=== PATIENT | male | born 1970 | race Caucasian/White ===

== ENCOUNTER → 2021-12-03 | Outpatient (CLI) | payer BC, SELFPAY ==
--- NOTE | 2021-12-03 17:49 | MRI_ITS ---
STUDY: MRI LUMBAR SPINE WITHOUT CONTRAST REASON FOR EXAM: Male, 51 years old. Herniated disc L3-4 left side TECHNIQUE: Standardized fat and water weighted pulse sequences were obtained in the sagittal and axial planes. COMPARISON: None FINDINGS: The purposes of this report the lowest completely lumbarized vertebral body is best seen at L5 and was completely formed and spaces desiccated L5-S1. Utilizing this numbering system there is partial embolization of the S1 segment. T12-L1: Normal endplates. Normal disc height, hydration and morphology. Normal bilateral facet joints. Normal central canal and bilateral lateral recesses. Normal bilateral intervertebral neural foramina. Normal lumbar lordosis. There is no substantial scoliosis. Normal conus medullaris that terminates at the L1-2: Mild disc desiccation. L2-3: Mild disc desiccation, mild bulging, mild bilateral facet arthropathy. L3-4: Mild disc desiccation, mild disc bulging, mild bilateral facet arthropathy, mild bilateral neural foraminal encroachment. L4-5: Moderate disc desiccation, moderate central disc herniation, moderate bilateral facet arthropathy and ligamentous hypertrophy, moderate central stenosis AP diameter thecal sac 0.6 cm, mild bilateral neural foraminal encroachment. L5-S1: Moderate disc desiccation and loss of disc space height, moderate central disc herniation, moderate bilateral facet arthropathy and ligamentous hypertrophy, moderate central stenosis with AP diameter thecal sac 0.55 cm due to disc herniation, posterior element hypertrophic change and spinal lipomatosis acting in concert. Moderate bilateral neural foraminal encroachment. Normal visualized sacral ala. Normal visualized paraspinous soft tissue structures. MRI/Spine Lumbar (Routine) IMPRESSION: Moderate central disc herniation L5-S1. Moderate central disc herniation Mild disc bulging at L2-L4. Multilevel degenerative disc disease, central stenosis, facet arthropathy and neural foraminal encroachment as above. Electronically Signed: Adria Parker MD, BRADY at 8:50 EDT ,
== END | disposition home or self-care (01) ==
LOC: MRI 17:48
PROVIDERS: PCP Nurse Practitioner Family; Referring Provider Orthopaedic Surgery; Visit Provider Orthopaedic Surgery
DX: M51.26 Other intervertebral disc displacement, lumbar region (principal)
CPT/HCPCS: 72148

== ENCOUNTER → 2021-12-27 | Outpatient (CLI) | payer BC, SELFPAY ==
--- NOTE | 2021-12-27 08:51 | EKG12_ITS ---
Test Reason : PRE OP Blood Pressure : / mmHG Vent. Rate : 080 BPM Atrial Rate : 080 BPM P-R Int : 192 ms QRS Dur : 082 ms QT Int : 354 ms P-R-T Axes : 064 079 050 degrees QTc Int : 408 ms Normal sinus rhythm Normal ECG Confirmed by BERNABE SUMMERS, RICCARDO ([id number]), editor city FORREST DOE ([id number]) on 12/30/2021 1:22:56 PM Referred By: Cristóbal Silva Confirmed By:RICCARDO KIDD MD
[2021-12-27 09:37] LABS: Absolute Lymphocyte Count 2.14 X10^3/uL (0.83-4.51); Absolute Neutrophil Count 4.2 X10^3/uL (2.0-7.7); Basophil# 0.05 X10^3/uL; Basophil% 0.7 % (0-1); Eosinophil# 0.18 X10^3/uL; Eosinophils% 2.5 % (0-5); Lymphocyte # 2.14 X10^3/ul (0.83-4.51); Mean Corp Hgb Conc 34.1 g/dL (32-36); Mean Corpuscular Hgb 28.7 pg (27.0-32.0); Mean Corpuscular Volume 84.3 fL (80-94); Mean Platelet Vol. 9.2 fl (6.2-12.0); Monocyte# 0.57 X10^3/uL; NRBC Flagged by Analyzer 0 % (0-5); Neutrophil # 4.18 X10^3/uL (2.7-7.7); Neutrophil % 58.5 % (47-70); Platelet Count 282 K/mm3 (150-450); RBC Distribution Width CV 12.1 % (11.6-14.6); RBC Distribution Width SD 36.7 fl (35.1-43.9); Red Blood Count 5.22 M/mm3 (4.6-6.2); White Blood Count 7.1 K/mm3 (4.4-11.0)
[2021-12-27 10:24] LABS: Hemoglobin A1c 11.1 % (3.8-5.6)
[2021-12-27 10:25] LABS: Anion Gap 7 (5-15); BUN 18 mg/dL (7-18); BUN/Creat Ratio 18.3 RATIO (10-20); Calcium,Total 9.3 mg/dL (8.5-10.1); Chloride 101 mmol/L (98-107); Creatinine, Serum 0.98 mg/dL (0.70-1.30); EST Glomerular Filtration Rate 84 mL/min (>60); Est Glom Filt Rate - Afr Amer 102 mL/min (>60); Glucose 308 mg/dL (74-106); Potassium 4.2 mmol/L (3.5-5.1); Sodium Level 136 mmol/L (136-145)
[2021-12-27 10:57] LABS: HIV - WCH Non-Reactive (Nonreactive); Hepatitis B Surface Antibody Non-Reactive; Hepatitis C Antibody Non-Reactive (Nonreactive)
[2021-12-28 11:56] LABS: Hepatitis A AB, Total Negative (Negative)
== END | disposition home or self-care (01) ==
LOC: PAT 01-22 13:28
PROVIDERS: Anesthesiology; PCP Nurse Practitioner Family; Referring Provider Orthopaedic Surgery; Visit Provider Orthopaedic Surgery
DX: Z01.818 Encounter for other preprocedural examination (principal)
CPT/HCPCS: 36415; 80048; 83036; 83735; 85025; 86703; 86706; 86708; 86803; 87081; 93005

== ENCOUNTER 2022-03-04 07:35 | Observation (INO) | payer BC, SELFPAY ==
--- NOTE | 2022-02-26 10:16 | PCM.HP.BLA ---
History and Physical [id number] Acct: [id number] Name:JEFFERY SHEIKH Rep #: [id number] : 1970 ? ? Provider: Dr. Cristóbal Silva, DO Age/Sex:? 51/M ? ? Location: [facility] [place] Status: Signed Intake Vital Signs ? 11/15/2209:04 Height 5 ft 10 in Weight: 205 lb BMI 29.4 Intake Visit Reasons:?LUMBER SPINE Is patient in pain?: Yes Pain scale (1-10): 2 Allergies No Known Allergies Allergy (Unverified 11/15/21 10:05) Medications naproxen 250 mg tablet 250 mg PO BID PRN 11/15/21 [History Confirmed 11/15/21] tramadol 50 mg tablet 50 mg PO DAILY 11/15/21 [History Confirmed 11/15/21] PFSH Medical History? High blood pressure Social History? Smoking Status:? Never smoker alcohol intake:? current substance use type:? does not use HPI LUMBER SPINE Details: Parts of this documentation were recorded by a scribe, this documentation accurately reflects the service provided and the decisions made by me, Dr. Cristóbal Silva, 11/14/211902. JEFFERY MCGOWAN is a 51 year old M here today for her low back pain. States that he has been having pain for 3 weeks. States that all his pain is in his left hip and radiates down the left leg. States that he does have numbness and tingling. Denies any injury. States that laying down increases his pain along with sitting in his recliner. When he is up walking around his pain decreases. States that he has used ice and heat. The heat is more helpful. He sits with the heating pad on every night. States that he took Aleve for the pain and just started the Tramadol and Naproxen yesterday. Denies any injections. Jeffery is most pleasant gentleman 51 years old who presents in the company of his .? 3 weeks ago he woke up in the middle of the night with pain in his left buttocks.? Shortly thereafter began going down the anterior left thigh.? Now it even goes a little bit below the thigh.? The pain has been excruciating for 3 weeks now and has not improved.? He was put on a Medrol Dosepak by his family doctor which helped him only for 1 day and then the pain returned immediately.? Standing is better than sitting.? He denies any bowel or bladder dysfunction.? He denies history of unexplained weight loss night fever sweats or chills. On examination he has wasting of the left quad as compared to the right.? His left patellar reflex is absent his right one is 2+.? He has reasonable motor strength of all the major muscle groups of both lower extremities.? He does have some calf wasting on the left also as compared to the right.? Posterior tibialis reflexes are 1+ and equal bilaterally and Achilles reflexes are 2+ and equal bilaterally.? He has no long tract signs.? Clonus is absent Babinski's are downgoing. Review of plain x-rays taken in the office demonstrate that he has a fused L5-S1 level.? There are some decreased disc spaces above but not too degenerative. Impression: Herniated disc L3-4 with severe left L4 radiculopathy intractable pain and neurological deficit. Plan: Lumbar MRI scan to be done as soon as is reasonably possible.? I will see him after the MRI scan and make further recommendations. Coding Level of Care Code Off vis,new,level 3 Diagnoses Herniation of lumbar intervertebral disc? M51.26
[2022-02-27 14:09] LABS: Anion Gap 5 (5-15); BUN 19 mg/dL (7-18); BUN/Creat Ratio 16.1 RATIO (10-20); Calcium,Total 9.6 mg/dL (8.5-10.1); Chloride 108 mmol/L (98-107); Creatinine, Serum 1.18 mg/dL (0.70-1.30); EST Glomerular Filtration Rate 68 mL/min (>60); Est Glom Filt Rate - Afr Amer 83 mL/min (>60); Glucose 111 mg/dL (74-106); Magnesium 2.3 mg/dL (1.6-2.6); Potassium 4.1 mmol/L (3.5-5.1); Sodium Level 140 mmol/L (136-145)
[2022-03-04] VITALS (15 sets, daily range): BP systolic 98–145; BP diastolic 63–90; PULSE 14–109; RESP 12–100; TEMP 36.1–37.1; O2SAT 94–100; BMI 27.1
[2022-03-04] MEDS: Acetaminophen 500 MG Tablet 1000 MG PO ×3 (06:23→22:23)
[2022-03-04] MEDS: Magnesium 1 GM over 15 mins IV (06:24)
[2022-03-04] MEDS: Lactated Ringers 1,000 ML 15 ML IV ×3 (06:24→11:27)
[2022-03-04] MEDS: Insulin Lispro 100 UNIT/ML INSULN.PEN SC ×2 (06:51→18:06)
[2022-03-04 07:00] LABS: Bedside Glucose 181 mg/dL (74-106)
--- NOTE | 2022-03-04 07:30 | DISC_PTH ---
PATIENT: MARIAN MCGOWAN LOC: MS3 U#:[id number] AGE/SX: 51/M ROOM: NV319 RE03/04/[address]: Dr. Cristóbal Silva DO : 1970 BED: 1 DIS: 03/06/2022 SPEC #: [id number] RECD: 03/04/22 10:39 STATUS: EDMAR RERaul #: [id number] YASIR: 03/04/22 07:[address]: Cristóbal Silva DEPT: SURGICAL PATHOLOGY RECD BY: Abby Braun ENTERED: 03/04/22 11:07 SP TYPE: DISC OTHR DR: MD Alejo Montgomery, CAMP GUARD-C Tissues: A - Intervertebral disc, NOS B - Intervertebral disc, NOS Procedures: Surgery Specimen Level III HEADER OPERATION: ERAS, laminectomy, lumbar, discectomy, L3-4 left, L4-5 left PRE-OP DIAGNOSIS: Herniated disc L3-4, L4-5 with severe right side pain TISSUE SUBMITTED: A ? Disc of L3-4, B ? Disc of L4-5 MICROSCOPIC DIAGNOSIS A. Intervertebral disc L3-4, discectomy: Fragments of intervertebral disc with degenerative change. B. Intervertebral disc L4-5, discectomy: Fragments of intervertebral disc with degenerative change. AM:quynh 03/05/2022 MICROSCOPIC DESCRIPTION Slides are reviewed. GROSS DESCRIPTION A - Received in fixative is one container labeled with the patient's name and designated disc L3-4. The specimen consists of multiple fragments of barajas-pink, indurated tissue that in aggregate measure 2 x 2 x 0.3 cm. The entire specimen is submitted in one cassette. B - Received in fixative is one container labeled with the patient's name and designated disc L4-5. The specimen consists of multiple fragments of barajas-pink, indurated tissue that in aggregate measure 1.5 x 1.5 x 0.2 cm. The entire specimen is submitted in one cassette. / SJ:quynh 03/04/2022 TC:5 CPT: 30682 x2
[2022-03-04] MEDS: Cefazolin 2 GM in 0.9% Normal Saline 100 ML IV (08:10)
--- NOTE | 2022-03-04 08:40 | RAD_ITS ---
STUDY: X-RAY - LUMBAR SPINE REASON FOR EXAM: Male, 51 years old. Intraoperative for laminectomy TECHNIQUE: 1 Limited intraoperative view(s) of the lumbar spine were obtained. COMPARISON: None FINDINGS: 1 Limited intraoperative study performed as the patient is undergoing laminectomy at L4-5. A surgical marker is noted posterior to the L4-5 disc space, a clamp is attached to the spinous process at L4 RAD/Lumbar Spine 2 or 3 Views IMPRESSION: Surgical marker posterior to the L4-5 disc space Electronically Signed: Juan Polo MD at 14:02 EST ,
[2022-03-04] MEDS: THROMBIN (RECOMBINANT) 20,000 UNIT VIAL 20000 UNIT TOPICAL (08:59)
--- NOTE | 2022-03-04 10:50 | PCM.OPRPT ---
Report of Operation Description of Surgical Findings:: Preoperative diagnosis: Herniated disc L4-5 and L3-4 with right-sided radiculopathy Postoperative diagnosis: The same Procedures: #1 lumbar laminectomy discectomy L4-5 on the right CPT code 80525 #2 lumbar laminectomy discectomy L3-4 on the right CPT code 08184/51 Surgeon: Dr. Silva behavioral modification assistant: Mela GRAY Anesthesia: General endotracheal administered by [facility] Estimated blood loss less than 30 cc Drains: None Complications: Dural leak at L3-4 Procedure: Patient was taken to the OR where he was placed under general endotracheal anesthesia a Delgado catheter was inserted. Neuro monitoring placed her leads on the patient. He was then placed in prone position on the Hugo frame. After appropriate positioning with care to protect his bony prominences his genitalia the brachial plexus bilaterally the ulnar nerves of both elbows the back was prepped and draped in standard fashion. I then made a longitudinal incision centered over L4-5. Subcutaneous tissues were incised length of the skin incision. I opened the lumbar fascia to the right of the spinous processes and elevated the paravertebral muscles off the lamina for in the top of the lamina 5. An intraoperative x-ray was taken with a marker in place to confirm that we were indeed at L4-5 which we were. A Lesli retractor was then put in place cauterized soft tissue off of the lamina of L4. Using double-action rongeurs I thinned the lamina which was quite thick I down on the right side. Then elevated the ligamentum flavum off the underside of the lamina of L4 and the laminectomy was carried out with 45 degree Kerrison rongeurs. Move the ligamentum flavum in retrograde fashion by splitting it at the top using sharp dissection followed by loosening of the ligament off the top of the L5 lamina and then used Kerrison rongeurs to remove it all the way out laterally and also opened it completely on the lateral side to make the area devoid of ligamentum flavum. I then retracted the L5 nerve root and the dura medialward and the disc was apparent then cut into the disc with a 15 blade and began removal of the nucleus with pituitary rongeurs both straight and out bites. Then packed the area with the Gelfoam and a cottonoid. We then moved up to the next level I extended the incision and elevated the paravertebral muscles off the lamina of L3. Again it was very thick and I thinned it down with double-action rongeurs. I then released the ligamentum flavum off the underside of the lamina of the laminectomy was then carried out. I also split this ligamentum flavum longitudinally and removed it using the 45 degree Kerrison rongeurs all the way out lateralward I then retracted the nerve root and dura medialward again cut into the L3 disc and remove nucleus from within the disc this completely opened the right side completely. When we were done we were removing the nerve root retractor and we noticed a small hole in the's right side of the dura. I thoroughly irrigated the entire area I then placed DuraGen directly on the leak which completely stopped it. We then put amniotic membrane at L4-5 to prevent adhesions and put Gelfoam over that also put Gelfoam over the DuraGen on that the L3 level. There was a little blood that we did not need a drain specially with the dural hole. We close lumbar fascia using [id number] suture with #1 Vicryl for closure of subcutaneous tissues with 2-0 Vicryl in interrupted fashion and finally the skin was approximated using skin clips sterile dressings were then applied he was then recovered in the OR he was moved to his hospital bed and taken to recovery in satisfactory condition. The end of operative summary on Jeffery Sanchez. This is Dr. Silva dictating.
[2022-03-04 11:31] LABS: Bedside Glucose 91 mg/dL (74-106)
--- NOTE | 2022-03-04 14:26 | PCM.PN.HOSP ---
Subjective Subjective Patient recent postop status post lumbar laminectomy discectomy L4-5 and L3-4 on the right secondary to history of herniated disc with right-sided radiculopathy and lumbar pain. He denies any significant discomfort aside incisional. He denies any radicular symptoms currently. He denies any paresthesias. He notes he is much more comfortable than he usually is at his prior baseline. Patient denies fevers, chills, nausea, emesis, abdominal pain, chest pain or dyspnea. Objective Data Objective Data Vital Signs: Vital Signs Temp Pulse Resp BP Pulse Ox O2 Del Method O2 Flow Rate 97.7 F L 103 H 18 112/68 94 Nasal Cannula 4 03/04/22 12:53 03/04/22 12:53 03/04/22 12:53 03/04/22 12:53 03/04/22 12:53 03/04/22 12:53 03/04/22 12:53 Oxygen Flow Rate (L/min) 4 Oxygen Delivery Method Nasal Cannula Weight: 189 lb 6.033 oz Body Mass Index (BMI) 27.1 Intake & Output: Intake and Output for Last 24 Hours 03/02/22 03/03/22 03/04/22 23:59 23:59 23:59 Intake Total 1260 / 1260 Output Total 1000 / 1000 Balance 260 / 260 Lab / Micro Data Result Diagrams: 02/27/22 12:55 Labs: Laboratory Results - last 24 hr 03/04/22 05:57: POC Glucose 181 H 03/04/22 11:09: POC Glucose 91 Micro: Microbiology 02/27/22 12:55 Swab (Method) Nasal Screen MRSA/MSSA - Final Radiography Diagnostic Testing: Radiology Impression Lumbar Spine X-Ray 03/04/22 08:40 IMPRESSION: Surgical marker posterior to the L4-5 disc space Electronically Signed: Juan Polo MD at 14:02 EST , Physical Exam Narrative Physical Examination: General: Awake, alert, oriented x 3 and cooperative, laying in the medical surgical bed, notes feeling well status post OR with pain very well controlled compared to his previous Skin: Normal color, normal turgor, no icterus, no cyanosis except for postsurgical incisions, dressings in place, no drainage and on back currently. HEENT: AT/NC, EOMI, PERRLA, mildly dry MM, no carotid bruits or JVD noted. Lungs: Mildly diminished, greater bases to anterior and side examination, no rales, ronchi or wheezing. Heart: Regular rate and rhythm; no gallop, rub audible. Abdomen: Soft, mildly overweight, NTTP, ND, distant normal BS, no HSM. Extremities: No cyanosis, clubbing, or edema. Neurological: Patient awake, alert, oriented as noted, cognitive function intact; pupils equally reactive to light and accommodation, cranial nerves II-XII grossly normal, moving all 4 extremities although somewhat limited as patient is on bedrest currently per surgery, strength accordingly moderately to severely global decreased. Psychiatric: Affect appears normal, no acute evidence of depressive or anxiety feelings. Assessment & Plan Assessment/Plan (1) Herniated nucleus pulposus, L4-5 left: (2) Herniated nucleus pulposus, L3-4 left: PLAN: Plan The patient is a 51 y/o M w/ PMHx: Overweight, Diabetes mellitus type II, DOMINIC previously using CPAP, HTN, Chronic lumbar back pain with RLE radicular pain who presents to the [facility] in 03/04/22 for planned lumbar laminectomy per Dr. Silva secondary to ongoing severe discomfort. 1. Herniated disc L4-5 and L3-4 with right-sided radiculopathy and intractable back pain: Failed conservative therapies and treatments, admitted per Dr. Silva for planned 03/04/2022 lumbar laminectomy discectomy L3-4, L4-5 on the right, post-operative pain management, bowel regimen, DVT Prophylaxis, PT/OT/CM per surgery discretion. #2. DOMINIC: CPAP nightly encouraged however patient does report that since he had weight loss he believes he is not had symptoms but has not been reassessed, encouraged strongly that he follow-up and currently maintained on continuous pulse ox therefore would have some idea if he has had ongoing issues. #3. Diabetes mellitus type II: Hold oral home regimen just in case any necessity for CT imaging with contrast given recent MR, ADA diet, accu checks w/ ISS. #4. Hypertension: Continue home regimen including lisinopril, PRN hydralazine. #5. Overweight: Weight loss and lifestyle changes encouraged. #6. DVT prophylaxis: SCDs, chemoprophylaxis per surgery discretion given recent OR. Admission Evaluation Time spent evaluating chart, patient history, patient evaluation, care planning and discussion with specialists: 50 minutes. Charges/Coding Visit Charges Inpatient E&M: 88740 [facility] H[facility] L3
[2022-03-04] MEDS: Lactated Ringers 1,000 ML 100 ML IV (14:29)
[2022-03-04] MEDS: Ensure Surgery 237 ML LIQUID PO ×2 (14:30→18:06)
[2022-03-04] MEDS: Cefazolin 1 GM/50 ML BAG IV (16:02)
[2022-03-04 16:41] LABS: Bedside Glucose 208 mg/dL (74-106)
[2022-03-04] MEDS: oxyCODONE 5 MG Tablet PO ×2 (18:04→22:24)
--- NOTE | 2022-03-04 21:15 | CPS ---
DISCUSSED CPAP USE WITH PATIENT. HE STATED HE STOPPED WEARING IT MONTHS AGO. HE HAS LOST OVER 30LBS AND DOES NOT SLEEP WELL WITH CPAP ANYMORE. I SUGGESTED HE DISCUSS DOING A REPEAT SLEEP STUDY WITH HIS DRMaryjane GIVEN IT HAS BEEN A NUMBER OF YEARS SINCE HIS LAST STUDY AND THE SIGNIFICANT WEIGHT LOSS. HE AGREED TO DISCUSS WITH HIS DOCTOR.
[2022-03-04] MEDS: Lisinopril 10 MG Tablet PO (22:23)
[2022-03-04] MEDS: Zolpidem Tartrate 5 MG Tablet PO (22:24)
[2022-03-04 22:55] LABS: Bedside Glucose 125 mg/dL (74-106)
[2022-03-05] MEDS: Morphine 4 MG/ML Syringe IV ×2 (00:52→16:29)
[2022-03-05] MEDS: Cefazolin 1 GM/50 ML BAG IV (00:52)
[2022-03-05 00:57] VITALS: BP 139/85; PULSE 103; RESP 18; TEMP 37; O2SAT 100
[2022-03-05] MEDS: diazePAM 5 MG Tablet PO ×4 (01:08→21:17)
[2022-03-05] MEDS: oxyCODONE 5 MG Tablet PO ×3 (03:15→12:57)
[2022-03-05 06:37] VITALS: BP 158/93; PULSE 105; RESP 16; TEMP 36.8; O2SAT 98
[2022-03-05] MEDS: Acetaminophen 500 MG Tablet 1000 MG PO ×3 (06:52→21:17)
[2022-03-05 07:15] LABS: Bedside Glucose 124 mg/dL (74-106)
--- NOTE | 2022-03-05 07:42 | PN.HOSP_ITS ---
Subjective Subjective Laying in bed, reports he is more comfortable at this time. Had no complaints Objective Data Objective Data Vital Signs: Vital Signs Temp Pulse Resp BP Pulse Ox O2 Del Method O2 Flow Rate 98.2 F 105 H 16 158/93 H 98 Room Air 4 03/05/22 06:37 03/05/22 06:37 03/05/22 06:37 03/05/22 06:37 03/05/22 06:37 03/05/22 06:37 03/04/22 14:43 Oxygen Flow Rate (L/min) 4 Oxygen Delivery Method Room Air Weight: 85.9 kg Body Mass Index (BMI) 27.1 Intake & Output: Intake and Output for Last 24 Hours 03/03/22 03/04/22 03/05/22 23:59 23:59 23:59 Intake Total 1761.25 / 1761.25 1550 / 1550 Output Total 4000 / 4000 1450 / 1450 Balance -2238.75 / -2238.75 100 / 100 Lab / Micro Data Result Diagrams: 02/27/22 12:55 Labs: Laboratory Results - last 24 hr 03/04/22 11:09: POC Glucose 91 03/04/22 16:20: POC Glucose 208 H 03/04/22 22:22: POC Glucose 125 H 03/05/22 06:51: POC Glucose 124 H Micro: Microbiology 02/27/22 12:55 Swab (Method) Nasal Screen MRSA/MSSA - Final Radiography Diagnostic Testing: Radiology Impression Lumbar Spine X-Ray 03/04/22 08:40 IMPRESSION: Surgical marker posterior to the L4-5 disc space Electronically Signed: Juan Polo MD at 14:02 EST , Physical Exam Const alert and no apparent distress Constitutional Narrative: Oriented HEENT normocephalic and head/scalp atraumatic Eyes Eyes Narrative: EOM grossly intact, anicteric Neck supple Resp normal respiratory effort and clear to auscultation bilaterally Cardio regular rate and regular rhythm GI soft to palpation, non-tender and non-distended Extremity Extremity Narrative: No edema appreciated Neuro Neuro Narrative: No overt focal deficits appreciated Psych Psych Narrative: Cooperative Assessment & Plan Assessment/Plan (1) Herniated nucleus pulposus, L4-5 left: (2) Herniated nucleus pulposus, L3-4 left: PLAN: Plan The patient is a 51 y/o M w/ PMHx: Overweight, Diabetes mellitus type II, DOMINIC previously using CPAP, HTN, Chronic lumbar back pain with RLE radicular pain who presents to the [facility] in 03/04/22 for planned lumbar laminectomy per Dr. Silva secondary to ongoing severe discomfort. #Herniated disc L4-5 and L3-4 with right-sided radiculopathy and intractable back pain Failed conservative therapies and treatments Admitted per Dr. Silva for planned 03/04/2022 lumbar laminectomy discectomy L3- 4, L4-5 on the right Further management per surgery Physical therapy consulted #DOMINIC CPAP nightly is encouraged though he does not believe he has symptoms further On pulse ox presently Will need outpatient follow-up #Type 2 diabetes mellitus Accu-Cheks with sliding scale insulin #Hypertension Continue lisinopril BP slightly elevated today, possibly due to pain Is on scheduled Tylenol If does not improve can adjust medications though suspect this is transient #Overweight Weight loss and lifestyle encouraged #DVT prophylaxis: SCDs, chemoprophylaxis per surgery discretion given recent OR. Charges/Coding Visit Charges Inpatient E&M: 81022 Subs Hosp L2
[2022-03-05] MEDS: Ensure Surgery 237 ML LIQUID PO (08:36)
[2022-03-05 08:38] VITALS: BP 162/88; PULSE 101; RESP 17; TEMP 36.9; O2SAT 94
--- NOTE | 2022-03-05 10:03 | CASEMGMT ---
DREW HASSAN Assessment: Face to Face with pt for initial transition planning/care coordination assessment. RN CM introduced self and role at [facility], pt voices understanding and consents to assessment. Pt is A/O x4 and answers all questions appropriately at this time. Pt on BR in no distress. Care providers, pharmacy, and demographics verified/updated. Admitting Dx: laminectomy, lumbar discectomy L3-4 and L4-5 left PCP:Alejo Damian [employer] Specialists:RHONA Silva; robin Telles Preferred Pharmacy: [facility] Retail Insurance: [place] Prescription Benefit: yes LNOK: Haydee Tatum, Living Arrangements: Pt lives with in a single story house with 5 steps to enter with a rail. Pt reports he is I in ADL's and denies concerns at home. Transportation: Pt drives self and denies concerns with transportation. Pt will transport him after surgery until he can drive again. DME/HHC/SNF: Pt has a CPAP at home but does not use. Pt is having a hospital bed delivered today. Pt reports he has a cane, FWW, shower bench available to use if needed. Pt states he has a barndominium at home with a bathroom and main living area. There is 2 steps to enter there. Pt reports he is going to stay in it until he is better able to be functional in his home. Pt states no concerns with going home at time of dc. Pt states no further concerns/needs. CM to follow. Advised pt to ask CM if any further question/concerns/needs arise, voices understanding. Pt Goal: Home Plan: Home
[2022-03-05 11:51] LABS: Bedside Glucose 200 mg/dL (74-106)
--- NOTE | 2022-03-05 12:41 | NURSING ---
instructed pt to get up slowly when he goes to the bathroom, since lasix can drop blood pressure. verbalized understanding.
[2022-03-05] MEDS: Insulin Lispro 100 UNIT/ML INSULN.PEN SC (12:49)
--- NOTE | 2022-03-05 13:08 | PCM.PN.ORT ---
Subjective Subjective Postop day #1. Patient is resting well course he is flat in bed because of his dural leak but we will get him up tomorrow and get him walking and probably send him home. His dressing is dry. Neurologically he is intact. He relates that his right leg pain is gone because he had it even lying in bed. Progress is satisfactory at this point I will see him again tomorrow and hopefully be able to send him home. Objective Data Objective Data Vital Signs: Vital Signs Temp Pulse Resp BP Pulse Ox O2 Del Method O2 Flow Rate 98.4 F 101 H 17 162/88 H 94 Room Air 4 03/05/22 08:38 03/05/22 08:38 03/05/22 08:38 03/05/22 08:38 03/05/22 08:38 03/05/22 08:38 03/04/22 14:43 Oxygen Flow Rate (L/min) 4 Oxygen Delivery Method Room Air Weight: 189 lb 6.033 oz Body Mass Index (BMI) 27.1 Intake & Output: Intake and Output for Last 24 Hours 03/03/22 03/04/22 03/05/22 23:59 23:59 23:59 Intake Total 1761.25 / 1761.25 1550 / 1550 Output Total 4000 / 4000 1450 / 1450 Balance -2238.75 / -2238.75 100 / 100 Lab / Micro Data Result Diagrams: 02/27/22 12:55 Labs: Laboratory Results - last 24 hr 03/04/22 16:20: POC Glucose 208 H 03/04/22 22:22: POC Glucose 125 H 03/05/22 06:51: POC Glucose 124 H 03/05/22 11:16: POC Glucose 200 H Micro: Microbiology 02/27/22 12:55 Swab (Method) Nasal Screen MRSA/MSSA - Final Radiography Diagnostic Testing: Radiology Impression Lumbar Spine X-Ray 03/04/22 08:40 IMPRESSION: Surgical marker posterior to the L4-5 disc space Electronically Signed: Juan Polo MD at 14:02 EST ,
[2022-03-05 14:13] VITALS: BP 143/89; PULSE 100; RESP 18; TEMP 36.8; O2SAT 100
[2022-03-05 16:45] LABS: Bedside Glucose 137 mg/dL (74-106)
--- NOTE | 2022-03-05 16:46 | NURSING ---
Addendum entered by Diamond Rollins 03/05/22 16:47: did not view drsg at this time, has been painful, gave morphine and is comfortable now. Original Note: denies numbness and tingling to hands and feet. states feet have been cold for months.
[2022-03-05 21:16] VITALS: BP 151/94; PULSE 104; RESP 18; TEMP 36.9; O2SAT 99
[2022-03-05] MEDS: Lisinopril 10 MG Tablet PO (21:18)
[2022-03-05 21:36] LABS: Bedside Glucose 149 mg/dL (74-106)
[2022-03-06] MEDS: Zolpidem Tartrate 5 MG Tablet PO (00:13)
[2022-03-06] MEDS: oxyCODONE 5 MG Tablet PO ×4 (00:14→15:15)
[2022-03-06 03:20] VITALS: BP 151/95; PULSE 99; RESP 16; TEMP 37.7; O2SAT 99
[2022-03-06] MEDS: diazePAM 5 MG Tablet PO ×2 (03:22→10:08)
[2022-03-06] MEDS: 0.9% Saline Lock 10 ML Syringe IV (03:29)
[2022-03-06] MEDS: Morphine 2 MG/ML Syringe IV (03:29)
[2022-03-06] MEDS: Acetaminophen 500 MG Tablet 1000 MG PO ×2 (06:15→13:38)
[2022-03-06 06:55] LABS: Bedside Glucose 117 mg/dL (74-106)
[2022-03-06 07:00] VITALS: O2SAT 97
[2022-03-06 08:17] VITALS: PULSE 70
[2022-03-06 08:25] VITALS: BP 137/86; PULSE 98; RESP 16; TEMP 36.4; O2SAT 99
--- NOTE | 2022-03-06 09:00 | PN.HOSP_ITS ---
Subjective Subjective Doing well today, no complaints Objective Data Objective Data Vital Signs: Vital Signs Temp Pulse Resp BP Pulse Ox O2 Del Method O2 Flow Rate 97.5 F L 98 16 137/86 H 99 Room Air 4 03/06/22 08:25 03/06/22 08:25 03/06/22 08:25 03/06/22 08:25 03/06/22 08:25 03/06/22 08:25 03/04/22 14:43 Oxygen Flow Rate (L/min) 4 Oxygen Delivery Method Room Air Weight: 85.9 kg Body Mass Index (BMI) 27.1 Intake & Output: Intake and Output for Last 24 Hours 03/04/22 03/05/22 03/06/22 23:59 23:59 23:59 Intake Total 1761.25 / 1761.25 2050 / 2050 500 / 500 Output Total 4000 / 4000 3475 / 3475 1550 / 1550 Balance -2238.75 / -2238.75 -1425 / -1425 -1050 / -1050 Lab / Micro Data Result Diagrams: 02/27/22 12:55 Labs: Laboratory Results - last 24 hr 03/05/22 11:16: POC Glucose 200 H 03/05/22 16:23: POC Glucose 137 H 03/05/22 21:10: POC Glucose 149 H 03/06/22 06:14: POC Glucose 117 H Micro: Microbiology 02/27/22 12:55 Swab (Method) Nasal Screen MRSA/MSSA - Final Physical Exam Const alert and no apparent distress Constitutional Narrative: Oriented HEENT normocephalic and head/scalp atraumatic Eyes Eyes Narrative: EOM grossly intact, anicteric Neck supple Resp normal respiratory effort and clear to auscultation bilaterally Cardio regular rate and regular rhythm GI soft to palpation, non-tender and non-distended Extremity Extremity Narrative: No edema appreciated Neuro Neuro Narrative: No overt focal deficits appreciated Psych Psych Narrative: Cooperative Assessment & Plan Assessment/Plan (1) Herniated nucleus pulposus, L4-5 left: (2) Herniated nucleus pulposus, L3-4 left: PLAN: Plan The patient is a 51 y/o M w/ PMHx: Overweight, Diabetes mellitus type II, DOMINIC previously using CPAP, HTN, Chronic lumbar back pain with RLE radicular pain who presents to the [facility] in 03/04/22 for planned lumbar laminectomy per Dr. Silva secondary to ongoing severe discomfort. #Herniated disc L4-5 and L3-4 with right-sided radiculopathy and intractable back pain Failed conservative therapies and treatments Admitted per Dr. Silva for planned 03/04/2022 lumbar laminectomy discectomy L3- 4, L4-5 on the right Further management per surgery Physical therapy consulted 03/06: Patient feeling better today, management per Dr. Silva #DOMINIC CPAP nightly is encouraged though he does not believe he has symptoms further On pulse ox presently Will need outpatient follow-up #Type 2 diabetes mellitus Accu-Cheks with sliding scale insulin #Hypertension Continue lisinopril BP slightly elevated today, possibly due to pain Is on scheduled Tylenol If does not improve can adjust medications though suspect this is transient #Overweight Weight loss and lifestyle encouraged #DVT prophylaxis: SCDs, chemoprophylaxis per surgery discretion given recent OR. Charges/Coding Visit Charges Inpatient E&M: 41800 Subs Hosp L1
--- NOTE | 2022-03-06 09:47 | CASEMGMT ---
DREW CM in to pt room, pt at bedside and pt sitting up in chair. Pt states he has a BGM at home with sufficient supply of strips and lancets. Pt used FWW with therapy today and has this at home. Pt denies any homegoing needs.
[2022-03-06 12:55] LABS: Bedside Glucose 129 mg/dL (74-106)
--- NOTE | 2022-03-06 13:00 | PCM.DC ---
Discharge Instructions Activity May shower in (days): 5 May resume sexual activity in: 4-6 weeks Weight Bearing Status: Full weight bearing Lifting Restrictions: 20# Dressing / Incision Remove Dressing in: 4 days Follow Up Care Test Results: Test results from this visit will be discussed in further detail at your follow-up appointment, if applicable. Discharge Plan Admission Admit Date/Time: 03/04/22 07:35 Primary Reason for Your Visit: back surgery Attending Provider: Cristóbal Silva Primary Care Provider: Alejo Damian NP Consulting Providers: Deshawn Miramontes ; Cece Fox Discharge Orders/Prescriptions Prescriptions: No Action lisinopril 5 mg tablet 10 mg PO QHS baclofen 10 mg tablet 10 mg PO PRN PRN (Reason: Pain) metformin 500 mg tablet extended release 24hr 1,000 mg PO BID Qty: 360 1RF glimepiride 1 mg tablet 0.5 mg PO BID (DME) lancing device [Autolet Lancing Device] Misc See Rx Instructions .Route Qty: 1 0RF Rx Instructions: As directed Referrals / Follow Up: Alejo Damian NP, [employer] OPERATOR-C [Primary Care Provider] - Disposition Disposition (needs filled in before D/C Order can be placed): Home, Self Care
--- NOTE | 2022-03-06 13:02 | PCM.DC.SUM ---
Providers Date of Admission: 03/04/22 Primary Care Physician: ROBERT CallejasC Attending Physician: Patient was admitted on Thursday 2 days ago. The date of admission he underwent lumbar laminectomy at 2 levels. He also had a dural leak. This was at the L3-4 level the upper of the 2. He was in bed all day yesterday. He was up today and reports that he has relief of his right leg pain. He was up and walking in the sy with a walker. His dressing is dry. I gave him and his instructions regarding his discharge. We will give him 7.5 mg oxycodone with acetaminophen for pain. He already has an appointment to see me in the office. This the end of discharge summary on Jeffery Sanchez. This is Dr. Silva dictating. Consultations 03/04/22 13:23 Consult: Hospitalist Routine Consulting Provider: Deanna Eddy Reason for Consult: Medical Management EMERGENT Consult: No MD Notified: Yes Date Notified: 03/04/22 Time Notified: 13:56 Method of Notification: Text Reason For Visit: LAMINECTOMY,LUMBAR,DISCECTOMY L3-4 AND L4-5 LEFT Diagnosis Discharge Diagnosis (1) Herniated nucleus pulposus, L4-5 left: Status: Acute Code(s): M51.26 - Other intervertebral disc displacement, lumbar region (2) Herniated nucleus pulposus, L3-4 left: Status: Acute Code(s): M51.26 - Other intervertebral disc displacement, lumbar region Medications at Discharge Home Medications baclofen 10 mg tablet 10 mg PO PRN PRN Pain 01/22/22 lisinopril 5 mg tablet 10 mg PO QHS 01/22/22 metformin 500 mg tablet,extended release 24hr 1,000 mg PO BID #360 tabs 01/22/22 lancing device (Autolet Lancing Device) #1 ea 01/24/22 glimepiride 1 mg tablet 0.5 mg PO BID 02/27/22 Weight / BMI Weight Weight: 189 lb 6.033 oz Body Mass Index (BMI) 27.1 ABG / Lab / Microbiology Data Result Diagrams: 02/27/22 12:55 Laboratory: Laboratory Results - last 24 hr 03/05/22 16:23: POC Glucose 137 H 03/05/22 21:10: POC Glucose 149 H 03/06/22 06:14: POC Glucose 117 H 03/06/22 10:48: POC Glucose 129 H Microbiology: Microbiology 02/27/22 12:55 Swab (Method) Nasal Screen MRSA/MSSA - Final D/C Instructions May shower in (days): 5 May resume sexual activity in: 4-6 weeks Weight Bearing Status: Full weight bearing Meaningful Use Info Meaningful Use Diagnoses (Choose all that apply): None applicable Discharge Plan Admission Admit Date/Time: 03/04/22 07:35 Primary Reason for Your Visit: back surgery Attending Provider: Cristóbal Silva Primary Care Provider: Alejo Damian NP Consulting Providers: Deshawn Miramontes ; Cece Fox Discharge Orders/Prescriptions Prescriptions: No Action lisinopril 5 mg tablet 10 mg PO QHS baclofen 10 mg tablet 10 mg PO PRN PRN (Reason: Pain) metformin 500 mg tablet extended release 24hr 1,000 mg PO BID Qty: 360 1RF glimepiride 1 mg tablet 0.5 mg PO BID (DME) lancing device [Autolet Lancing Device] Misc See Rx Instructions .Route Qty: 1 0RF Rx Instructions: As directed Referrals / Follow Up: Alejo Damian FISHING ROD TRIMMER, [employer] TRIMMER-C [Primary Care Provider] - Disposition Disposition (needs filled in before D/C Order can be placed): Home, Self Care
[2022-03-06 13:40] VITALS: BP 97/62; PULSE 103; RESP 18; TEMP 36.4; O2SAT 100
== END 2022-03-06 15:34 | disposition home or self-care (01) ==
LOC: SDC 11:11 → MS3 11:11
PROVIDERS: Anesthesiology; Admitting Provider Orthopaedic Surgery; PCP Nurse Practitioner Family; Referring Provider Orthopaedic Surgery; Visit Provider Orthopaedic Surgery
PROC: (CPT 63030; principal; 2022-03-04 07:00)
DX: M51.16 Intervertebral disc disorders with radiculopathy, lumbar region (principal); E11.9 Type 2 diabetes mellitus without complications; I10 Essential (primary) hypertension; Z79.899 Other long term (current) drug therapy; Z79.84 Long term (current) use of oral hypoglycemic drugs; G47.33 Obstructive sleep apnea (adult) (pediatric); G97.41 Accidental puncture or laceration of dura during a procedure; Y92.234 Operating room of hospital as the place of occurrence of the external cause
CPT/HCPCS: 63030; 63035; 00630; 36415; 72100; 80048; 82962; 83735; 87081; 88304; 96361; 96365; 96366; 96375; 96376; 97162; 99221; 99252; J7120; A4216; G0378; G0463; J2405; J3475

== ENCOUNTER → 2022-06-05 | Outpatient (CLI) | payer BC, SELFPAY ==
[2022-06-05 13:41] LABS: EGFR FINGERSTICK > 60.0000 mL/min (>60)
--- NOTE | 2022-06-05 13:45 | MRI_ITS ---
INDICATION: Low back pain, post laminectomy syndrome. EXAMINATION: MR Spine Lumbar WO/W Contrast TECHNIQUE: Multiplanar and multisequence MR images of the lumbar spine. IV Contrast Dosage and Agent: None. COMPARISON: MRI lumbar spine December 03, 2021, report only.. Lumbar spine x-rays March 04, 2022. FINDINGS: Transitional lumbosacral anatomy. Prior study described lumbarization of the S1 sacral segment, with a vestigial S1-2 disc. Interval postoperative changes of right hemilaminectomy at L4-5 and L5-S1. L4-5: Partial decompression of the central canal. Right central disc protrusion with mass effect upon the right L5 traversing nerve root again seen. L5-S1: Partial decompression of the central canal. Central protrusion with mild mass effect upon the traversing S1 nerve roots again seen. Likely seroma with mild marginal enhancement within the subcutaneous at the lower L3 to lower L5 spinous process levels. There is no clumping of the spinal nerve roots or abnormal enhancement of the cauda equina. Simple renal cysts, no follow-up recommended. Remainder unchanged. MRI/Spine Lumbar W/WO Contrast IMPRESSION: Postoperative changes as described. Electronically Signed: Sonu Castelan MD at 0:12 EDT ,
== END | disposition home or self-care (01) ==
PROVIDERS: PCP Nurse Practitioner Family; Referring Provider Anesthesiology Pain Medicine; Visit Provider Anesthesiology Pain Medicine
DX: M96.1 Postlaminectomy syndrome, not elsewhere classified (principal)
CPT/HCPCS: 72158; A9575